=== PATIENT | male | born 1965 | race Caucasian/White ===

== ENCOUNTER 2021-10-07 20:24 | Observation (INO) | payer OTHER ==
[2021-10-07 21:12] LABS: Basophils # (A) 0.1 k/uL (0-0.2); Basophils % (A) 1 %; Eosinophils # (A) 0.1 k/uL (0-0.7); Eosinophils % (A) 1 %; HCT 45.5 % (39.0-53.0); HGB 15.4 gm/dL (13.0-17.5); Lymphocytes # (A) 2.3 k/uL (1.0-4.8); Lymphocytes % (A) 31 %; MCHC 33.8 g/dL (31.0-37.0); MCV 94.5 fL (80.0-100.0); Mean Platelet Volume 6.7; Monocytes # (A) 0.3 k/uL (0-1.0); Monocytes % (A) 4 %; Neutrophils # (A) 4.4 k/uL (1.3-7.7); Neutrophils % (A) 60 %; Platelet Count 275 k/uL (150-450); RBC 4.82 m/uL (4.30-5.90); RDW 13.2 % (11.5-15.5); WBC 7.3 k/uL (3.8-10.6)
[2021-10-07 21:26] LABS: ALT 19 U/L (4-49); AST 32 U/L (17-59); African American GFR (CKD) >90 (>60 ml/min/1.73 sqM); Albumin 4.4 g/dL (3.5-5.0); Alkaline Phosphatase 61 U/L (38-126); Anion Gap 6 mmol/L; Blood Urea Nitrogen 12 mg/dL (9-20); Calcium 8.8 mg/dL (8.4-10.2); Carbon Dioxide 26 mmol/L (22-30); Chloride 108 mmol/L (98-107); Glucose 101 mg/dL (74-99); Magnesium 1.8 mg/dL (1.6-2.3); Non-African American GFR(CKD) >90 (>60 ml/min/1.73 sqM); Potassium 3.8 mmol/L (3.5-5.1); Sodium 140 mmol/L (137-145); Total Bilirubin 0.5 mg/dL (0.2-1.3); Total Protein 7.2 g/dL (6.3-8.2)
--- NOTE | 2021-10-07 21:33 | XR ---
EXAMINATION TYPE: XR chest 2V DATE OF EXAM: 10/07/2021 8:58 PM COMPARISON: Chest radiographs from 08/08/2015 TECHNIQUE: XR chest 2V Frontal and lateral views of the chest. CLINICAL INDICATION:Male, 55 years old with history of Chest Pain; FINDINGS: Lungs/Pleura: There is no evidence of pleural effusion, focal consolidation, or pneumothorax. Pulmonary vascularity: Unremarkable. Heart/mediastinum: Cardiomediastinal silhouette is unremarkable. Musculoskeletal: No acute osseous pathology. IMPRESSION: No acute cardiopulmonary disease/process.
[2021-10-07 21:43] LABS: Partial Thromboplastin Time 24.3 sec (22.0-30.0); Prothrombin Time 10.5 sec (9.0-12.0)
[2021-10-07] MEDS ORDERED: NALOXONE 0.4 MG/ML 1 ML VIAL IV PRN (23:59)
[2021-10-07] MEDS ORDERED: ACETAMINOPHEN TAB 325 MG TAB PO PRN (23:59)
[2021-10-08] MEDS ORDERED: ASPIRIN 325 MG TAB PO STA (00:01)
[2021-10-08] MEDS ORDERED: PANTOPRAZOLE 40 MG/10 ML VIAL IVP STA (00:01)
--- NOTE | 2021-10-08 00:06 | ED ---
General Adult HPI - General Chief complaint: Chest Pain Stated complaint: Chest Pain Time Seen by Provider: 10/07/21 23:15 Source: patient, RN notes reviewed, old records reviewed Mode of arrival: ambulatory Limitations: no limitations - History of Present Illness Initial comments: 55-year-old male presenting for evaluation of bilateral chest discomfort, this described as a chest tightness which is been ongoing for the past several days. He has a history of gastric reflux and hypercholesterolemia. He states that he has had some nausea as well and frequent belching. He has an appointment see gastroenterology in the next several days but presents to the emergency department with worsening chest tightness. He does admit to diaphoresis. He has no prior known history of CAD. - Related Data Home Medications Medication Instructions Recorded Confirmed Aspirin [Adult Low Dose Aspirin EC] 81 mg PO DAILY 08/08/15 08/08/15 Omeprazole [PriLOSEC] 20 mg PO AC-BRKFST 08/08/15 08/08/15 Previous Rx's Medication Instructions Recorded Atorvastatin Calcium [Lipitor] 20 mg PO DAILY #30 tab 08/08/15 Allergies Allergy/AdvReac Type Severity Reaction Status Date / Time amoxicillin Allergy Unknown Verified 10/07/21 20:33 Review of Systems ROS Statement: Those systems with pertinent positive or pertinent negative responses have been documented in the HPI. ROS Other: All systems not noted in ROS Statement are negative. Past Medical History Past Medical History: GERD/Reflux, Hyperlipidemia Additional Past Medical History / Comment(s): Pt states with watching his diet- his cholesterol has dropped from 250 to 212-he is not on medication for this at this time. History of Any Multi-Drug Resistant Organisms: None Reported Past Surgical History: No Surgical Hx Reported Additional Past Surgical History / Comment(s): Pt states he has never had any surgery. Past Anesthesia/Blood Transfusion Reactions: Unable to Obtain Additional Past Anesthesia/Blood Transfusion Reaction / Comment(s): Pt has never had surgery. Pt has never received blood. Past Psychological History: No Psychological Hx Reported Smoking Status: Never smoker Past Alcohol Use History: Occasional Past Drug Use History: None Reported - Past Family History Father Family Medical History: Hyperlipidemia, Hypertension Additional Family Medical History / Comment(s): Father is 79yrs old. Mother Family Medical History: Cancer Additional Family Medical History / Comment(s): Mother of colon cancer at age 69yrs. She had breast cancer as well. General Exam Limitations: no limitations General appearance: alert, in no apparent distress Head exam: Present: atraumatic, normocephalic Eye exam: Present: normal appearance, PERRL ENT exam: Present: normal exam Neck exam: Present: normal inspection. Absent: tenderness, meningismus Respiratory exam: Present: normal lung sounds bilaterally. Absent: respiratory distress, wheezes Cardiovascular Exam: Present: regular rate, normal rhythm GI/Abdominal exam: Present: soft. Absent: distended, tenderness, guarding, rebound Extremities exam: Present: normal inspection, normal capillary refill. Absent: pedal edema, calf tenderness Neurological exam: Present: alert, oriented X3, CN II-XII intact. Absent: motor sensory deficit Psychiatric exam: Present: normal affect, normal mood Skin exam: Present: warm, dry, intact. Absent: cyanosis, diaphoretic Course Vital Signs 10/07/21 20:29 Temperature 98.1 F Pulse Rate 73 Respiratory 20 Rate Blood Pressure 145/70 O2 Sat by Pulse 99 Oximetry EKG Findings - EKG Comments: EKG Findings:: EKG: Sinus rhythm, incomplete right bundle-branch block, rate 65, KY interval 159, QRS duration 114, QTC 409, no ST segment elevation. Medical Decision Making - Medical Decision Making 55-year-old male presenting for evaluation of chest pain, chest tightness, pa tient's symptoms have both typical and atypical features. His EKG shows sinus rhythm with incomplete right bundle-branch block, no ST segment elevation. Chest x-ray is clear. Normal CBC, normal CMP, negative initial troponin. Patient will be kept in observation for serial cardiac enzymes, telemetry, cardiology consultation, case discussed with Dr. Price - Lab Data Result diagrams: 10/07/21 21:02 10/07/21 21:02 Lab Results 10/07/21 10/07/21 10/07/21 Range/Units 21:02 21:02 21:02 WBC 7.3 (3.8-10.6) k/uL RBC 4.82 (4.30-5.90) m/uL Hgb 15.4 (13.0-17.5) gm/dL Hct 45.5 (39.0-53.0) % MCV 94.5 (80.0-100.0) fL MCH 32.0 (25.0-35.0) pg MCHC 33.8 (31.0-37.0) g/dL RDW 13.2 (11.5-15.5) % Plt Count 275 (150-450) k/uL MPV 6.7 Neutrophils % 60 % Lymphocytes % 31 % Monocytes % 4 % Eosinophils % 1 % Basophils % 1 % Neutrophils # 4.4 (1.3-7.7) k/uL Lymphocytes # 2.3 (1.0-4.8) k/uL Monocytes # 0.3 (0-1.0) k/uL Eosinophils # 0.1 (0-0.7) k/uL Basophils # 0.1 (0-0.2) k/uL PT 10.5 (9.0-12.0) sec INR 1.0 (<1.2) APTT 24.3 (22.0-30.0) sec Sodium 140 (137-145) mmol/L Potassium 3.8 (3.5-5.1) mmol/L Chloride 108 H (98-107) mmol/L Carbon Dioxide 26 (22-30) mmol/L Anion Gap 6 mmol/L BUN 12 (9-20) mg/dL Creatinine 0.95 (0.66-1.25) mg/dL Est GFR (CKD-EPI)AfAm >90 (>60 ml/min/1.73 sqM) Est GFR (CKD-EPI)NonAf >90 (>60 ml/min/1.73 sqM) Glucose 101 H (74-99) mg/dL Calcium 8.8 (8.4-10.2) mg/dL Magnesium 1.8 (1.6-2.3) mg/dL Total Bilirubin 0.5 (0.2-1.3) mg/dL AST 32 (17-59) U/L ALT 19 (4-49) U/L Alkaline Phosphatase 61 (38-126) U/L Troponin I (0.000-0.034) ng/mL Total Protein 7.2 (6.3-8.2) g/dL Albumin 4.4 (3.5-5.0) g/dL 10/07/21 Range/Units 21:02 WBC (3.8-10.6) k/uL RBC (4.30-5.90) m/uL Hgb (13.0-17.5) gm/dL Hct (39.0-53.0) % MCV (80.0-100.0) fL MCH (25.0-35.0) pg MCHC (31.0-37.0) g/dL RDW (11.5-15.5) % Plt Count (150-450) k/uL MPV Neutrophils % % Lymphocytes % % Monocytes % % Eosinophils % % Basophils % % Neutrophils # (1.3-7.7) k/uL Lymphocytes # (1.0-4.8) k/uL Monocytes # (0-1.0) k/uL Eosinophils # (0-0.7) k/uL Basophils # (0-0.2) k/uL PT (9.0-12.0) sec INR (<1.2) APTT (22.0-30.0) sec Sodium (137-145) mmol/L Potassium (3.5-5.1) mmol/L Chloride (98-107) mmol/L Carbon Dioxide (22-30) mmol/L Anion Gap mmol/L BUN (9-20) mg/dL Creatinine (0.66-1.25) mg/dL Est GFR (CKD-EPI)AfAm (>60 ml/min/1.73 sqM) Est GFR (CKD-EPI)NonAf (>60 ml/min/1.73 sqM) Glucose (74-99) mg/dL Calcium (8.4-10.2) mg/dL Magnesium (1.6-2.3) mg/dL Total Bilirubin (0.2-1.3) mg/dL AST (17-59) U/L ALT (4-49) U/L Alkaline Phosphatase (38-126) U/L Troponin I <0.012 (0.000-0.034) ng/mL Total Protein (6.3-8.2) g/dL Albumin (3.5-5.0) g/dL Disposition Clinical Impression: Chest pain Disposition: ADMITTED IP TO THIS HOSP Condition: Stable Is patient prescribed a controlled substance at d/c from ED?: No Referrals: None,Stated [Primary Care Provider] - 1-2 days Time of Disposition: 00:06
[2021-10-08] MEDS ORDERED: ATORVASTATIN 80 MG TAB PO SCH (03:06)
--- NOTE | 2021-10-08 03:07 | P.HPIM ---
History of Present Illness H&P Date: 10/08/21 The patient is a 55-year-old male with a PMH of hyperlipidemia who presents to the emergency room with complaints of chest discomfort. The patient reports that over the past 3-4 days, he has experienced intermittent substernal chest tightness. He reports a history of GERD but notes that his pain has somewhat changed over the past few days. He also endorsed some episodes of exertional diaphoresis but denied shortness of breath, nausea, or palpitations. Denied experiencing fever, chills, cough, abdominal pain, diarrhea. EKG revealed sinus rhythm at 65 bpm with an incomplete right bundle branch block. Chest x-ray was unremarkable. Review of systems: Pertinent positives and negatives as discussed in HPI, a complete review of systems was performed and all other systems are negative. Physical examination: General: non toxic, no distress, appears at stated age, obese Derm: no unusual rashes/lesions, warm Head: atraumatic, normocephalic, symmetric Eyes: EOMI, no lid lag, anicteric sclera, pupils equal round reactive to light ENT: Nose and ears atraumatic Neck: No cervical lymphadenopathy, trachea midline, supple Mouth: no lip lesion, mucus membranes moist Cardiovascular: S1S2 reg, no murmur, positive dorsalis pedis pulse bilateral, no edema Lungs: CTA bilateral, no rhonchi, no rales, no accessory muscle use Abdominal: soft, nontender to palpation, no guarding Ext: muscle strength 5 out of 5 in all 4 extremities grossly, no gross muscle atrophy, no contractures, Neuro: CN II-XI grossly intact, no gross focal neuro deficits Psych: Alert, oriented, appropriate affect Assessment/plan Chest pain, rule out ACS -Cardiac monitoring -Cardiology consult -Trend troponin -Continue with aspirin, statin DVT prophylaxis -Heparin subcu The patient is admitted with an anticipated less than 2 midnight stay for evaluation of chest pain CODE STATUS: Full Code Discussed with: Patient Anticipated discharge date: in am Anticipated discharge place: Home Past Medical History Past Medical History: GERD/Reflux, Hyperlipidemia Additional Past Medical History / Comment(s): Pt states with watching his diet- his cholesterol has dropped from 250 to 212-he is not on medication for this at this time. History of Any Multi-Drug Resistant Organisms: None Reported Past Surgical History: No Surgical Hx Reported Additional Past Surgical History / Comment(s): Pt states he has never had any surgery. Past Anesthesia/Blood Transfusion Reactions: Unable to Obtain Additional Past Anesthesia/Blood Transfusion Reaction / Comment(s): Pt has never had surgery. Pt has never received blood. Past Psychological History: No Psychological Hx Reported Additional Psychological History / Comment(s): Pt resides with his spouse and 2 adult daughters. He is independent. He drives. Smoking Status: Never smoker Past Alcohol Use History: Occasional Past Drug Use History: None Reported - Past Family History Father Family Medical History: Hyperlipidemia, Hypertension Additional Family Medical History / Comment(s): Father is 79yrs old. Mother Family Medical History: Cancer Additional Family Medical History / Comment(s): Mother of colon cancer at age 69yrs. She had breast cancer as well. Medications and Allergies Home Medications Medication Instructions Recorded Confirmed Type Aspirin [Adult Low Dose Aspirin EC] 81 mg PO DAILY 08/08/15 08/08/15 History Atorvastatin Calcium [Lipitor] 20 mg PO DAILY #30 tab 08/08/15 Rx Omeprazole [PriLOSEC] 20 mg PO AC-BRKFST 08/08/15 08/08/15 History Allergies Allergy/AdvReac Type Severity Reaction Status Date / Time amoxicillin Allergy Unknown Verified 10/07/21 20:33 Physical Exam Vitals: Vital Signs Temp Pulse Pulse Resp BP BP Pulse Ox 10/08/21 01:15 97.8 F 59 L 18 145/65 97 10/08/21 00:14 70 18 131/77 98 10/07/21 20:29 98.1 F 73 20 145/70 99 Intake and Output 10/07/21 10/07/21 10/08/21 14:59 22:59 06:59 Other: Weight 90.718 kg 90.718 kg Results CBC & Chem 7: 10/07/21 21:02 10/07/21 21:02 Labs: Abnormal Lab Results - Last 24 Hours (Table) 10/07/21 Range/Units 21:02 Chloride 108 H (98-107) mmol/L Glucose 101 H (74-99) mg/dL Thrombosis Risk Factor Assmnt - Choose All That Apply Each Factor Represents 1 point: Age 41-60 years, Obesity (BMI >25) Thrombosis Risk Factor Assessment Total Risk Factor Score: 2 Thrombosis Risk Factor Assessment Level: Low Risk
[2021-10-08 07:41] VITALS: BP 131/72; PULSE 66; TEMP 98.2
[2021-10-08] MEDS ORDERED: HEPARIN SODIUM,PORCINE/PF 5,000 UNIT/0.5 ML SYRINGE SQ SCH (08:00)
[2021-10-08] MEDS ORDERED: ASPIRIN 325 MG TAB PO SCH (09:00)
[2021-10-08] MEDS ORDERED: ASPIRIN 81 MG PO SCH (09:00)
--- NOTE | 2021-10-08 09:37 | P.CRDCN ---
History of Present Illness History of present illness: This is a 55 year old male with a past medical history of GERD. He does not follow with a sampler tester. We are asked to see in consultation for chest pain. Patient presents to the ER with complaints of chest discomfort for 1 week. He states it comes and goes, but he has noticed it more frequently. It is located on the right side of his chest, describes it as a pressure or burning. Non-rad iating. He notices it more after work and sometimes after eating lunch. 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 Sometimes has nausea, abdominal bloating with the discomfort. No specific alleviating factors. He states even if he eats a large meal at home sometimes the pain does not occur. He denies any shortness of breath, palpitations, diaphoresis, lightheadedness, dizziness, syncope or near syncope. He denies any history of CAD, LA, Stroke, Diabetes, or hypertension. Family history includes father has CAD in his 80s. Denies any tobacco use. He states only medications he takes at home is Omeprazole. DIAGNOSTICS EKG reveals sinus rhythm, heart rate 65, incomplete right bundle branch block, T wave inversion in lead 3, no significant STT wave abnormalities to suggest ischemia. Prior EKG in 2016 with similar findings Most recent stress test in 2016 was a stress echo which revealed no evidence of stress-induced ischemia Telemetry tracings indicate in sinus rhythm with heart rate 4860s. Chest xray no acute cardiopulmonary process. Laboratory reviewed, troponin negative 3, CBC unremarkable, sodium 140, potassium 3.8, BUN 12, serum creatinine 0.9, magnesium 1.8. Current home medications include omeprazole, and aspirin. REVIEW OF SYSTEMS At the time of my exam: CONSTITUTIONAL: Denies fever or chills. CARDIOVASCULAR: Denies chest pain, shortness of breath, orthopnea, PND or palpitations. RESPIRATORY: Denies cough. GASTROINTESTINAL: Denies abdominal pain, diarrhea, constipation, nausea or vomiting. MUSCULOSKELETAL: Denies myalgias. NEUROLOGIC: Denies numbness, tingling, headache or weakness. ENDOCRINE: Denies fatigue, weight change, polydipsia or polyurina. GENITOURINARY: Denies burning, hematuria or urgency with micturation. HEMATOLOGIC: Denies history of anemia or bleeding. PHYSICAL EXAMINATION Blood pressure 131/72, heart rate 66, afebrile, saturation 98% on room air CONSTITUTIONAL: No apparent distress. HEENT: Head is normocephalic. Pupils are equal, round. Sclerae anicteric. Mucous membranes of the mouth are moist. No JVD. No carotid bruit. CHEST EXAMINATION: Lungs are clear to auscultation. No chest wall tenderness is noted on palpation or with deep breathing. HEART EXAMINATION: Regular rate and rhythm. S1, S2 heard. No murmurs, gallops or rub. ABDOMEN: Soft, nontender. Positive bowel sounds. EXTREMITIES: 2+ peripheral pulses, no lower extremity edema and no calf tenderness. SKIN: warm, dry NEUROLOGIC EXAMINATION: Patient is awake, alert and oriented x3. ASSESSMENT Chest pain, atypical, acute coronary syndrome has ruled out, possible GI component History of GERD PLAN An acute coronary event has been ruled out with no EKG evidence of ischemia and negative cardiac enzymes. Obtain 2D echocardiogram and doppler study to assess cardiac structure and function. Perform exercise stress test to assess for stress induced cardiac ischemia. If stress test is negative okay to discharge from cardiology perspective, patient may follow up outpatient. Thank you kindly for this consultation. Nurse practitioner note has been reviewed by physician. Signing provider agrees with the documented findings, assessment, and plan of care. Past Medical History Past Medical History: GERD/Reflux, Hyperlipidemia Additional Past Medical History / Comment(s): Pt states with watching his diet- his cholesterol has dropped from 250 to 212-he is not on medication for this at this time. History of Any Multi-Drug Resistant Organisms: None Reported Past Surgical History: No Surgical Hx Reported Additional Past Surgical History / Comment(s): Pt states he has never had any surgery. Past Anesthesia/Blood Transfusion Reactions: Unable to Obtain Additional Past Anesthesia/Blood Transfusion Reaction / Comment(s): Pt has never had surgery. Pt has never received blood. Past Psychological History: No Psychological Hx Reported Additional Psychological History / Comment(s): Pt resides with his spouse and 2 adult daughters. He is independent. He drives. Smoking Status: Never smoker Past Alcohol Use History: Occasional Past Drug Use History: None Reported - Past Family History Father Family Medical History: Hyperlipidemia, Hypertension Additional Family Medical History / Comment(s): Father is 79yrs old. Mother Family Medical History: Cancer Additional Family Medical History / Comment(s): Mother of colon cancer at age 69yrs. She had breast cancer as well. Medications and Allergies Home Medications Medication Instructions Recorded Confirmed Type Aspirin [Adult Low Dose Aspirin EC] 81 mg PO DAILY 08/08/15 10/08/21 History Omeprazole [PriLOSEC] 20 mg PO DAILY 08/08/15 10/08/21 History Allergies Allergy/AdvReac Type Severity Reaction Status Date / Time amoxicillin AdvReac Abdominal Verified 10/08/21 08:23 Pain Physical Exam Vitals: Vital Signs Temp Pulse Pulse Resp BP BP Pulse Ox 10/08/21 01:15 97.8 F 59 L 18 145/65 97 10/08/21 00:14 70 18 131/77 98 10/07/21 20:29 98.1 F 73 20 145/70 99 Intake and Output 10/07/21 10/08/21 10/08/21 22:59 06:59 14:59 Other: Voiding Method Toilet # Voids 0 Weight 90.718 kg 90.718 kg Results 10/07/21 21:02 10/07/21 21:02 Cardiac Enzymes 10/07/21 10/07/21 10/08/21 Range/Units 21:02 21:02 02:41 AST 32 (17-59) U/L Troponin I <0.012 <0.012 (0.000-0.034) ng/mL Coagulation 10/07/21 Range/Units 21:02 PT 10.5 (9.0-12.0) sec APTT 24.3 (22.0-30.0) sec CBC 10/07/21 Range/Units 21:02 WBC 7.3 (3.8-10.6) k/uL RBC 4.82 (4.30-5.90) m/uL Hgb 15.4 (13.0-17.5) gm/dL Hct 45.5 (39.0-53.0) % Plt Count 275 (150-450) k/uL Comprehensive Metabolic Panel 10/07/21 Range/Units 21:02 Sodium 140 (137-145) mmol/L Potassium 3.8 (3.5-5.1) mmol/L Chloride 108 H (98-107) mmol/L Carbon Dioxide 26 (22-30) mmol/L BUN 12 (9-20) mg/dL Creatinine 0.95 (0.66-1.25) mg/dL Glucose 101 H (74-99) mg/dL Calcium 8.8 (8.4-10.2) mg/dL AST 32 (17-59) U/L ALT 19 (4-49) U/L Alkaline Phosphatase 61 (38-126) U/L Total Protein 7.2 (6.3-8.2) g/dL Albumin 4.4 (3.5-5.0) g/dL Current Medications Generic Name Dose Route Start Last Admin Trade Name Freq PRN Reason Stop Dose Admin Acetaminophen 650 mg 10/07/21 23:59 Acetaminophen Tab 325 Mg Tab PO Q6HR PRN Mild Pain or Fever > 100.5 Aspirin 81 mg 10/08/21 09:00 Aspirin 81 Mg PO DAILY [facility] Atorvastatin Calcium 80 mg 10/08/21 03:06 10/08/21 03:57 Atorvastatin 80 Mg Tab PO Not Given HS [facility] Heparin Sodium (Porcine) 5,000 unit 10/08/21 08:00 Heparin Sodium,Porcine/Pf 5,000 Unit/0.5 Ml Syringe SQ Q8HR [facility] Naloxone HCl 0.2 mg 10/07/21 23:59 Naloxone 0.4 Mg/Ml 1 Ml Vial IV Q2M PRN Opioid Reversal Intake and Output 10/07/21 10/08/21 10/08/21 22:59 06:59 14:59 Other: Voiding Method Toilet # Voids 0 Weight 90.718 kg 90.718 kg 10/07/21 21:02 10/07/21 21:02
[2021-10-08 11:50] VITALS: RESP 16
[2021-10-08 11:57] LABS: Chol/HDL Ratio 3.77 Ratio; LDL Cholesterol,Calculated 116.5 mg/dL (0.0-131.0)
--- NOTE | 2021-10-08 12:48 | CA ---
Exercise Stress Test Report Name: Jordan Simpson Exam Date: 10/08/2021 09:26 Exam Location: [place] Stress Ht (in): 67 Wt (lb): 200 BSA: 2.02 Ordering Phys: Mariah Wood Referring Phys: LILIBETH,, Technologist: Riaz Riddle Age: 55 Gender: M : 1965 Procedure CPT: Indications: Chest Pain ICD-10 Codes: Patient History: CHEST PAIN Medications: Meds past 24 hrs: Pretest Chest Pain: STRESS TEST Raúl Protocol Exercise Duration (min:sec): 12:[address] Depressions (mm): Angina Score: Lin Score: Resting HR (bpm): 75 Peak HR (bpm): 169 Resting BP (mmHg): 139 / 75 Peak BP (mmHg): 190 / 78 MPHR: 167 Target HR: 142 % MPHR: 101 METS: 12.1 Total Dose: Peak Dose: Atropine: Double Product: 67578 BP Response: Stress Termination: Stress Symptoms: NO SYMPTOMS Stress Summary: Baseline EKG revealed normal sinus rhythm without significant ST and T-wave changes. Patient walked on a standard Raúl protocol for 12 minutes and achieved a heart rate of 169 bpm which is available 85% of predicted maximal. There was no angina. There was no significant arrhythmia and there were no ST segment changes to indicate ischemia. This is a negative stress test with excellent exercise capacity. ECG ANALYSIS Resting ECG: Stress ECG: CONCLUSIONS Dr. Kari Rhodes MD (Electronically Signed) Final Date: 08 October 2021 12:47
--- NOTE | 2021-10-08 13:36 | P.DS ---
Providers Date of admission: 10/07/21 23:59 Expected date of discharge: 10/08/21 Attending physician: Kayleigh Price MD Consults: 10/07/21 23:59 Consult Physician Routine Consulting Provider: Clayton Moseley Consult Reason/Comments: CP rule out Do you want consulting provider notified?: Yes Primary care physician: Stated None Hospital Course: Chest pain HLD GERD The patient is a 55-year-old male with a PMH of hyperlipidemia presented to the emergency room with complaints of chest discomfort. Patient was afebrile, HDS. CBC, Chemistries, LFTs, Coags, and troponins were unremarkable. EKG revealed sinus rhythm at 65 bpm with an incomplete right bundle branch block. Chest x- ray was unremarkable. Patient was admitted to observation with cardiology consult. Patient underwent EKG stress test which was negative for reversible ischemia. Pt was discharged home with PCP and cardiology f/u. Pt was also given GI f/u given atypical symptoms which were worse with PO intake and when lying down. Gen: awake, alert HEENT: normocephalic, atraumatic, good hearing acuity, moist mucous membranes Resp: good air exchange, breathing comfortably with no accessory muscle use, clear to auscultation bilaterally CVS: good distal perfusion x 4, regular rate and rhythm without murmurs GI: soft, NTTP, ND : no SPT, no CVAT, escobedo catheter not present MSK: no pitting edema, no clubbing Neuro: non-focal, moving all extremities Psych: cooperative, euthymic mood Patient Condition at Discharge: Good Plan - Discharge Summary New Discharge Prescriptions: New Atorvastatin [Lipitor] 80 mg PO HS #30 tab Acetaminophen Tab [Tylenol] 650 mg PO Q6HR PRN tab PRN Reason: Mild Pain Or Fever > 100.5 Continue Omeprazole [PriLOSEC] 20 mg PO DAILY Aspirin [Adult Low Dose Aspirin EC] 81 mg PO DAILY Discharge Medication List Aspirin [Adult Low Dose Aspirin EC] 81 mg PO DAILY 08/08/15 [History] Omeprazole [PriLOSEC] 20 mg PO DAILY 08/08/15 [History] Acetaminophen Tab [Tylenol] 650 mg PO Q6HR PRN tab 10/08/21 [Rx] Atorvastatin [Lipitor] 80 mg PO HS #30 tab 10/08/21 [Rx] Follow up Appointment(s)/Referral(s): Elena Moseley MD [STAFF PHYSICIAN] - 1 Week None,Stated [Primary Care Provider] - 1-2 days Discharge Disposition: HOME SELF-CARE
--- NOTE | 2021-10-08 18:46 | CA ---
Transthoracic Echo Report Name: Jordan Simpson Age: 55 Gender: M : 1965 Exam Date: 10/08/2021 08:38 Exam Location: [facility] Ht (in): 67 Wt (lb): 200 Ordering Physician: Mariah Wood Attending/Referring Phys: Salvage Worker Marleny Suero RDCS Procedure CPT: Indications: Chest Pain Cardiac Hx: No cardiac hx Technical Quality: Good Contrast 1: Total Dose (mL): Contrast 2: Total Dose (mL): MEASUREMENTS (Male / Female) Normal Values 2D ECHO LV Diastolic Diameter PLAX 5.4 cm 4.2 - 5.9 / 3.9 - 5.3 cm LV Systolic Diameter PLAX 3.2 cm IVS Diastolic Thickness 1.3 cm 0.6 - 1.0 / 0.6 - 0.9 cm LVPW Diastolic Thickness 0.9 cm 0.6 - 1.0 / 0.6 - 0.9 cm LV Relative Wall Thickness 0.4 RV Internal Dim ED PLAX 2.9 cm LA Volume 64.2 cm??? 18 - 58 / 22 - 52 cm??? M-MODE Aortic Root Diameter MM 3.4 cm LA Systolic Diameter MM 3.6 cm LA Ao Ratio MM 1.0 MV E Point Septal Separation 1.2 cm AV Cusp Separation MM 2.2 cm DOPPLER AV Peak Velocity 133.4 cm/s AV Peak Gradient 7.1 mmHg AI Peak Velocity 203.5 cm/s AI Peak Gradient 16.6 mmHg AI Pressure Half Time 909.2 ms MV Area PHT 4.2 cm??? Mitral E Point Velocity 64.9 cm/s Mitral A Point Velocity 54.6 cm/s Mitral E to A Ratio 1.2 MV Deceleration Time 181.1 ms MV E' Velocity 11.1 cm/s Mitral E to MV E' Ratio 5.8 TR Peak Velocity 117.4 cm/s TR Peak Gradient 5.5 mmHg Right Ventricular Systolic Press 10.1 mmHg FINDINGS Left Ventricle Mildly increased septal wall thickness. Left ventricular ejection fraction is estimated at 55-60 %. Left ventricular cavity size normal. Right Ventricle The right ventricle is normal in size and function. Right Atrium The right atrium is normal in size. Left Atrium Mildly increased left atrial volume. Mitral Valve Structurally normal mitral valve without significant stenosis or prolapse. There is trace mitral regurgitation. Aortic Valve Structurally normal aortic valve without significant sclerosis or stenosis. There is no aortic regurgitation. Tricuspid Valve Structurally normal tricuspid valve without significant stenosis. Pulmonary artery systolic pressure is normal. Trace tricuspid regurgitation. Pulmonic Valve Structurally normal pulmonic valve without significant stenosis. There is no pulmonic regurgitation. Pericardium Normal pericardium without effusion. Aorta Normal aortic root dimension. CONCLUSIONS Normal LV size and systolic function. Mild to borderline concentric LVH. No significant abnormality in the Doppler exam no pericardial effusion Previewed by: Dr. Kari Rhodes MD (Electronically Signed) Final Date: 08 October 2021 18:45
== END 2021-10-08 14:19 | disposition home or self-care (01) ==
LOC: EC 20:24 → 6NMEDSUR 23:59
PROVIDERS: ADMIT Internal Medicine; ATTEND Internal Medicine
DX: R07.2 Precordial pain (principal); E78.5 Hyperlipidemia, unspecified; K21.9 Gastro-esophageal reflux disease without esophagitis; E78.00 Pure hypercholesterolemia, unspecified; R61 Generalized hyperhidrosis; I45.10 Unspecified right bundle-branch block; E66.9 Obesity, unspecified; Z68.31 Body mass index [BMI] 31.0-31.9, adult; Z79.82 Long term (current) use of aspirin; Z79.899 Other long term (current) drug therapy; Z88.0 Allergy status to penicillin; Z82.49 Family history of ischemic heart disease and other diseases of the circulatory system; Z80.3 Family history of malignant neoplasm of breast; Z80.0 Family history of malignant neoplasm of digestive organs
CPT/HCPCS: 96372; 96374; 99285; 36415; 93005; 93017; 93306; 80061; 80053; 83735; 84484 ×2; 85025; 85610; 85730; 71046; G0378; C9113; J1644